=== PATIENT | female | born 1980 ===

== ENCOUNTER 2020-06-08 08:14 | Emergency (ER) | payer OTHER, MEDICAID, SELFPAY ==
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
[2020-06-08 08:30] VITALS: BP 126/77; PULSE 98; RESP 20; O2SAT 100; BMI 23.8
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
[2020-06-08 10:37] VITALS: BP 107/66; PULSE 74; RESP 18; O2SAT 100
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
[2020-06-08] MEDS: Acetaminophen 325 MG TABLET 975 MG PO (10:44)
== END 2020-06-08 10:51 | disposition home or self-care (01) ==
PROVIDERS: Emergency Provider Emergency Medicine; PCP Hospitalist
DX: S13.4XXA Sprain of ligaments of cervical spine, initial encounter (principal); V43.52XA Car driver injured in collision with other type car in traffic accident, initial encounter; Y93.89 Activity, other specified; Y92.414 Local residential or business street as the place of occurrence of the external cause; Y99.9 Unspecified external cause status
CPT/HCPCS: 70450; 72125; 99284

== ENCOUNTER 2020-06-11 08:29 | Outpatient (REF) | payer OTHER, MEDICAID, SELFPAY ==
--- NOTE | 2020-06-11 08:44 | CT_ITS ---
EXAMINATION: CT ABDOMEN AND PELVIS WITHOUT AND WITH CONTRAST CLINICAL INFORMATION: Microscopic hematuria COMPARISON: Portions of a previous study of 11/07/19 TECHNIQUE: Multidetector volumetric imaging was performed of the abdomen and pelvis before and after the IV administration of 85 mL of Omnipaque 350 intravenous contrast. Sagittal and coronal reformatted images were obtained on the technologist's workstation. This CT examination was performed using dose optimization techniques as appropriate, variously including the following: *Automated exposure control *Adjustment of mA and/or kV according to patient size (this includes techniques or standardized protocols for targeted exams where dose is matched to indication/reason for exam; i.e. extremities or head) *Use of iterative reconstruction technique DLP: 606 mGy-cm FINDINGS: LUNG BASES: No suspicious abnormality in the visualized lower chest LIVER, GALLBLADDER, AND BILIARY TREE: The liver contour is smooth. No suspicious focal lesion. There is no opaque gallstone. There is no biliary dilation. PANCREAS: Within normal limits SPLEEN: Normal ADRENAL GLANDS: No suspicious abnormality KIDNEYS AND URETERS: The left kidney measures at least 11.2 cm in greatest length. The right kidney measures at least 11.2 cm in greatest length. There is no opaque urinary calculus. There is mild fullness of the collecting system on each side. The renal contours are smooth. No suspicious renal mass. 0.4 cm round low attenuating lesion lower pole lateral left kidney may represent a cyst but is too small to characterize. The nephrograms are symmetric. There is bilateral excretion. There is no definite urothelial mass or thickening. BLADDER: There is no point bladder calculus. Bladder contour is smooth. There is no diverticulum or mass demonstrated. GASTROINTESTINAL TRACT: No colonic wall thickening. The appendix is normal. The stomach is not distended. There is no significant small bowel dilation. ABDOMINAL WALL: No significant hernia is appreciated. LYMPH NODES: There are no enlarged abdominal or pelvic lymph nodes. VASCULAR: There is no abdominal aortic aneurysm. There is enhancement in the central portion of single renal arteries on each side. The central portion of the renal veins enhance on each side. The portal vein enhances. No significant free intraperitoneal fluid. PELVIC VISCERA: There is a subtle contour abnormality and slight attenuation difference in the right side of the uterine body. Previous ultrasound suggested a uterine fibroid No suspicious adnexal mass or collection. OSSEOUS STRUCTURES: There is some degenerative change at L5/S1. CT/CT abdomen pelvis wo/w con IMPRESSION: There is no evidence of urinary calculus or obstruction. No suspicious mass. No etiology for hematuria demonstrated
[2020-06-11] MEDS: iohexoL 350 MG/ML 100 ML INFUS..BTL IV (09:32)
== END 2020-06-11 08:30 | disposition home or self-care (01) ==
LOC: HO.CT 08:29
PROVIDERS: PCP Nurse Practitioner Family; Visit Provider Obstetrics & Gynecology
DX: R31.29 Other microscopic hematuria (principal)
CPT/HCPCS: 74178

== ENCOUNTER 2020-06-14 13:44 | Outpatient (REF) | payer OTHER, MEDICAID, SELFPAY ==
[2020-06-14 14:02] LABS: COVID-19 Test Negative (Negative)
== END 2020-06-14 13:45 | disposition home or self-care (01) ==
LOC: HO.LAB 13:44
PROVIDERS: PCP Hospitalist; Visit Provider Internal Medicine
DX: Z20.828 Contact with and (suspected) exposure to other viral communicable diseases (principal)
CPT/HCPCS: 87635

== ENCOUNTER 2020-07-12 12:58 | Outpatient (REF) | payer OTHER, SELFPAY ==
[2020-07-12 14:27] LABS: COVID-19 Test Negative (Negative)
== END 2020-07-12 12:59 | disposition home or self-care (01) ==
LOC: HO.EMPCOV 12:58
PROVIDERS: Visit Provider Internal Medicine
DX: Z20.828 Contact with and (suspected) exposure to other viral communicable diseases (principal)
CPT/HCPCS: 87635; C9803

== ENCOUNTER 2020-07-19 08:36 | Outpatient (REF) | payer OTHER, SELFPAY ==
[2020-07-19 09:57] LABS: COVID-19 Test Negative (Negative)
== END 2020-07-19 08:37 | disposition home or self-care (01) ==
LOC: HO.EMPCOV 08:36
PROVIDERS: PCP Hospitalist; Visit Provider Internal Medicine
DX: Z20.828 Contact with and (suspected) exposure to other viral communicable diseases (principal)
CPT/HCPCS: 87635; C9803

== ENCOUNTER 2020-08-11 09:30 | Outpatient (REF) | payer OTHER, SELFPAY ==
[2020-08-11 09:48] LABS: COVID-19 Test Negative (Negative)
== END 2020-08-11 09:31 | disposition home or self-care (01) ==
LOC: HO.EMPCOV 09:30
PROVIDERS: PCP Hospitalist; Visit Provider Internal Medicine
DX: Z20.828 Contact with and (suspected) exposure to other viral communicable diseases (principal)
CPT/HCPCS: 87635; C9803

== ENCOUNTER 2020-09-03 09:57 | Outpatient (REF) | payer OTHER, MEDICAID, SELFPAY ==
--- NOTE | 2020-09-03 10:01 | XR_ITS ---
EXAMINATION: LEFT ANKLE AND LEFT KNEE. CLINICAL INFORMATION: Pain left ankle and left knee. COMPARISON: None TECHNIQUE: 3 views left ankle and 2 views left knee. FINDINGS: LEFT ANKLE: There is a subtle lucency traversing the distal fibula. There is no visible acute fracture, dislocation or subluxation. The ankle mortise and subtalar joints are normal. Left knee: No visible acute fracture, dislocation or subluxation seen. There are no loose bodies, bony erosive changes or joint effusion. XR/XR knee LT 2V IMPRESSION: No acute fracture or dislocation left knee. Subtle lucency traversing the distal fibula but no fracture line suspected at this time. There is no soft tissue swelling either.
--- NOTE | 2020-09-03 10:01 | XR_ITS ---
EXAMINATION: LEFT ANKLE AND LEFT KNEE. CLINICAL INFORMATION: Pain left ankle and left knee. COMPARISON: None TECHNIQUE: 3 views left ankle and 2 views left knee. FINDINGS: LEFT ANKLE: There is a subtle lucency traversing the distal fibula. There is no visible acute fracture, dislocation or subluxation. The ankle mortise and subtalar joints are normal. Left knee: No visible acute fracture, dislocation or subluxation seen. There are no loose bodies, bony erosive changes or joint effusion. XR/XR ankle LT min 3V IMPRESSION: No acute fracture or dislocation left knee. Subtle lucency traversing the distal fibula but no fracture line suspected at this time. There is no soft tissue swelling either.
== END 2020-09-03 09:58 | disposition home or self-care (01) ==
LOC: HO.XRAY 09:57
PROVIDERS: PCP Nurse Practitioner Family; Visit Provider Internal Medicine
DX: M25.562 Pain in left knee (principal); M25.572 Pain in left ankle and joints of left foot
CPT/HCPCS: 73560; 73610

== ENCOUNTER 2020-09-14 12:11 | Outpatient (REF) | payer OTHER, MEDICAID, SELFPAY ==
[2020-09-14 12:33] LABS: MANUAL DIFF FLAG NO
[2020-09-14 12:36] LABS: Basophils Absolute Auto 0.1 X10*3/uL (0.0-0.2); Basophils Percent Auto 0.4 % (0-2); Eosinophils Percent Auto 0.2 % (0-4); Hematocrit 38.5 % (37-47); Hemoglobin 12.7 g/dl (12.0-16.0); Imm Gran Abs Auto 0.05 X10*3/uL (0.00-0.03); Imm Gran Pct Auto 0.3 % (0.0-0.4); Lymphocytes Absolute Auto 2.2 X10*3/uL (1.2-4.9); Mean Corpuscular Hemoglobin 28.9 pg (27.0-33.0); Mean Corpuscular Volume 87.5 fL (80-98); Mean Platelet Volume 9.2 fL (9.4-12.3); Monocytes Absolute Auto 0.6 X10*3/uL (0.1-1.2); Monocytes Percent Auto 4.2 % (2-11); Neutrophils Absolute Auto 11.8 X10*3/uL (2.0-8.3); Neutrophils Percent Auto 79.9 % (45-73); Platelet Count 412 X10*3/uL (160-400); Red Cell Distribution Width 12.4 % (11.0-16.0); White Blood Count 14.7 X10*3/uL (4.8-10.8)
[2020-09-14 13:20] LABS: Anion Gap 11 (12-20); Blood Urea Nitrogen 13 mg/dL (9-16); Carbon Dioxide 27 mmol/L (22-29); Chloride 105 mmol/L (96-108); Estimated Glomerular Filt Rate > 60; Glucose Fasting 86 mg/dL (60-99); Potassium 4.3 mmol/l (3.3-5.1); Sodium 139 mmol/L (135-145)
[2020-09-14 13:35] LABS: Rheumatoid Factor < 15.0 IU/mL (<15.0)
== END 2020-09-14 12:12 | disposition home or self-care (01) ==
LOC: HO.LAB 12:11
PROVIDERS: Visit Provider Nurse Practitioner Family
DX: M25.572 Pain in left ankle and joints of left foot (principal); M79.662 Pain in left lower leg
CPT/HCPCS: 36415; 80048; 85025; 86431

== ENCOUNTER 2020-09-29 10:06 | Outpatient (REF) | payer OTHER, MEDICAID, SELFPAY ==
[2020-09-29 10:20] LABS: COVID-19 Test Positive (Negative); IDNOW Serial# 55D5AD1C
== END 2020-09-29 10:07 | disposition home or self-care (01) ==
LOC: HO.EMPCOV 10:06
PROVIDERS: Visit Provider Internal Medicine
DX: Z20.822 Contact with and (suspected) exposure to COVID-19 (principal)
CPT/HCPCS: 36415; 87635; C9803

== ENCOUNTER 2020-11-10 08:10 | Outpatient (REF) | payer OTHER, MEDICAID, SELFPAY ==
[2020-11-10 09:03] LABS: MANUAL DIFF FLAG NO
[2020-11-10 09:07] LABS: Basophils Percent Auto 0.6 % (0-2); Eosinophils Absolute Auto 0.1 X10*3/uL (0.0-0.4); Eosinophils Percent Auto 0.7 % (0-4); Hematocrit 36.6 % (37-47); Hemoglobin 12.2 g/dl (12.0-16.0); Imm Gran Abs Auto 0.01 X10*3/uL (0.00-0.03); Imm Gran Pct Auto 0.1 % (0.0-0.4); Lymphocytes Absolute Auto 2.1 X10*3/uL (1.2-4.9); Lymphocytes Percent Auto 30.4 % (20-40); Mean Corpuscular HGB Conc 33.3 g/dl (31.0-35.0); Mean Corpuscular Volume 86.9 fL (80-98); Mean Platelet Volume 9.5 fL (9.4-12.3); Monocytes Absolute Auto 0.4 X10*3/uL (0.1-1.2); Monocytes Percent Auto 5.6 % (2-11); Neutrophils Absolute Auto 4.2 X10*3/uL (2.0-8.3); Neutrophils Percent Auto 62.6 % (45-73); Platelet Count 387 X10*3/uL (160-400); Red Blood Count 4.21 X10*6/uL (4.20-5.50); Red Cell Distribution Width 12.7 % (11.0-16.0); White Blood Count 6.7 X10*3/uL (4.8-10.8)
[2020-11-10 09:42] LABS: Alanine Aminotransferase 12 U/L (0-31); Alkaline Phosphatase 42 U/L (39-117); Anion Gap 14 (12-20); Aspartate Amino Transferase 22 U/L (5-31); Bilirubin Total 0.9 mg/dL (0.0-1.0); Blood Urea Nitrogen 12 mg/dL (9-16); Calcium 8.7 mg/dL (8.4-10.2); Carbon Dioxide 24 mmol/L (22-29); Chloride 106 mmol/L (96-108); Cholesterol 175 mg/dL; Estimated Glomerular Filt Rate > 60; Glucose Fasting 76 mg/dL (60-99); HDL Cholesterol 61 mg/dL; LDL Cholesterol Calculated 98 mg/dl; Sodium 140 mmol/L (135-145); Total Protein 6.8 g/dL (6.5-8.0); Triglycerides 80 mg/dL
[2020-11-10 10:02] LABS: TSH reflex Free T4 1.11 uIU/mL (0.32-4.0)
[2020-11-10 10:40] LABS: Folate > 20.0 ng/mL (> or = 4.0); Vitamin B12 676 pg/mL (200-900)
[2020-11-15 14:56] LABS: Vitamin D 25-OH, D2 <4 ng/mL; Vitamin D 25-OH, D3 35 ng/mL; Vitamin D 25-OH, Total 35 ng/mL (30-100)
== END 2020-11-10 08:11 | disposition home or self-care (01) ==
LOC: HO.LAB 08:10
PROVIDERS: PCP Nurse Practitioner Family; Visit Provider Nurse Practitioner Family
DX: R53.83 Other fatigue (principal)
CPT/HCPCS: 36415; 80053; 80061; 82306; 82607; 82746; 84443; 85025

== ENCOUNTER 2020-12-09 14:53 | Outpatient (REF) | payer OTHER, MEDICAID, SELFPAY | END 2020-12-09 14:54 | disposition home or self-care (01) | LOC: HO.LAB 14:53 | PROVIDERS: Visit Provider Obstetrics & Gynecology | DX: B97.7 Papillomavirus as the cause of diseases classified elsewhere (principal) | CPT/HCPCS: 57454; 81025; 88305 ==

== ENCOUNTER → 2020-12-13 14:21 | Outpatient (BNVA) | payer OTHER, MEDICAID, SELFPAY | PROVIDERS: Visit Provider Obstetrics & Gynecology ==

== ENCOUNTER 2021-03-08 13:56 | Outpatient (REF) | payer OTHER, MEDICAID, SELFPAY ==
[2021-03-09 02:39] LABS: CT PCR NOT DETECTED (Not Detect.); NG PCR NOT DETECTED (Not Detect.)
[2021-03-09 08:39] LABS: BV Int Neg Control Negative (Negative); BV Int Pos Control Positive (Positive)
== END 2021-03-08 13:57 | disposition home or self-care (01) ==
LOC: HO.LAB 13:56
PROVIDERS: PCP Internal Medicine; Visit Provider Obstetrics & Gynecology
DX: Z11.3 Encounter for screening for infections with a predominantly sexual mode of transmission (principal); N89.8 Other specified noninflammatory disorders of vagina; L29.8 Other pruritus
CPT/HCPCS: 87480; 87491; 87510; 87591; 87660

== ENCOUNTER 2021-05-07 09:02 | Outpatient (REF) | payer OTHER, MEDICAID, SELFPAY ==
--- NOTE | ~2021-05-07 | MM_ITS ---
EXAMINATION: MM SCREENING DIGITAL BREAST TOMOSYNTHESIS, BILATERAL CLINICAL INFORMATION: Screening. Asymptomatic. The lifetime risk of breast cancer based on the Tyrer-Cuzick Model is 8.3%. COMPARISON: Mammography: February 13, 2020 TECHNIQUE: Digital breast tomosynthesis is performed in both the craniocaudal and mediolateral oblique views along with computer-aided detection (CAD). Synthesized 2D images are generated from the tomosynthesis. FINDINGS: There are scattered areas of fibroglandular density (ACR BI-RADS breast composition Category b). There are no significant masses, abnormal calcifications, or other abnormalities. MM/MM tomosynthesis screening BI IMPRESSION: There are no significant changes from prior study. ASSESSMENT: BI-RADS 1: Negative RECOMMENDATION: Routine annual mammography screening. This patient's information was entered into a reminder system with a target due date for their next mammogram.
== END 2021-05-07 09:03 | disposition home or self-care (01) ==
LOC: HO.MAMMO 09:02
PROVIDERS: Visit Provider Obstetrics & Gynecology
DX: Z12.31 Encounter for screening mammogram for malignant neoplasm of breast (principal)
CPT/HCPCS: 77063; 77067

== ENCOUNTER 2021-08-22 11:08 | Outpatient (REF) | payer OTHER, MEDICAID, SELFPAY ==
[2021-08-23 05:14] LABS: CT PCR NOT DETECTED (Not Detect.); NG PCR NOT DETECTED (Not Detect.)
== END 2021-08-22 11:09 | disposition home or self-care (01) ==
LOC: HO.LAB 11:08
PROVIDERS: Visit Provider Obstetrics & Gynecology
DX: N93.9 Abnormal uterine and vaginal bleeding, unspecified (principal)
CPT/HCPCS: 87491; 87591

== ENCOUNTER → 2021-09-23 08:59 | Outpatient (BNVA) | payer OTHER, MEDICAID, SELFPAY | PROVIDERS: Visit Provider Obstetrics & Gynecology ==

== ENCOUNTER 2021-10-05 12:39 | Outpatient (REF) | payer OTHER, MEDICAID, SELFPAY ==
[2021-10-05 17:25] LABS: CT PCR NOT DETECTED (Not Detect.); NG PCR NOT DETECTED (Not Detect.)
[2021-10-06 08:49] LABS: BV Int Neg Control Negative (Negative); BV Int Pos Control Positive (Positive)
== END 2021-10-05 12:40 | disposition home or self-care (01) ==
LOC: HO.LAB 12:39
PROVIDERS: Visit Provider Obstetrics & Gynecology
DX: Z01.411 Encounter for gynecological examination (general) (routine) with abnormal findings (principal); B37.3 Candidiasis of vulva and vagina; Z20.2 Contact with and (suspected) exposure to infections with a predominantly sexual mode of transmission
CPT/HCPCS: 87480; 87491; 87510; 87591; 87660

== ENCOUNTER 2021-11-11 08:07 | Outpatient (REF) | payer OTHER, MEDICAID, SELFPAY ==
[2021-11-11 08:24] LABS: MANUAL DIFF FLAG NO
[2021-11-11 09:01] LABS: Basophils Percent Auto 0.5 % (0-2); Eosinophils Percent Auto 0.6 % (0-4); Hematocrit 36.6 % (37.0-47.0); Hemoglobin 12.5 g/dl (12.0-16.0); Imm Gran Abs Auto 0.02 X10*3/uL (0.00-0.03); Imm Gran Pct Auto 0.3 % (0.0-0.4); Lymphocytes Absolute Auto 1.8 X10*3/uL (1.2-4.9); Lymphocytes Percent Auto 28.4 % (20-40); Mean Corpuscular HGB Conc 34.2 g/dl (31.0-35.0); Mean Platelet Volume 9.2 fL (9.4-12.3); Monocytes Absolute Auto 0.3 X10*3/uL (0.1-1.2); Monocytes Percent Auto 5.2 % (2-11); Platelet Count 371 X10*3/uL (160-400); Red Blood Count 4.16 X10*6/uL (4.20-5.50); Red Cell Distribution Width 12.7 % (11.0-16.0); White Blood Count 6.2 X10*3/uL (4.8-10.8)
[2021-11-11 09:29] LABS: Alanine Aminotransferase 13 U/L (0-31); Albumin Level 3.9 g/dL (3.5-5.0); Alkaline Phosphatase 42 U/L (39-117); Anion Gap 12 (12-20); Aspartate Amino Transferase 15 U/L (5-31); Bilirubin Total 0.6 mg/dL (0.0-1.0); Blood Urea Nitrogen 10 mg/dL (9-16); Calcium 8.9 mg/dL (8.4-10.2); Carbon Dioxide 24 mmol/L (22-29); Chloride 107 mmol/L (96-108); Cholesterol 169 mg/dL; Estimated Glomerular Filt Rate > 60; Glucose Fasting 84 mg/dL (60-99); HDL Cholesterol 61 mg/dL; LDL Cholesterol Calculated 89 mg/dl; Potassium 4.3 mmol/L (3.3-5.1); Sodium 139 mmol/L (135-145); Total Protein 6.6 g/dL (6.5-8.0); Triglycerides 95 mg/dL
[2021-11-11 09:51] LABS: TSH reflex Free T4 1.07 uIU/mL (0.32-4.0)
== END 2021-11-11 08:08 | disposition home or self-care (01) ==
LOC: HO.LAB 08:07
PROVIDERS: PCP Nurse Practitioner Family; Visit Provider Nurse Practitioner Family
DX: Z00.00 Encounter for general adult medical examination without abnormal findings (principal); G47.9 Sleep disorder, unspecified
CPT/HCPCS: 36415; 80053; 80061; 84443; 85025

== ENCOUNTER 2021-11-25 08:38 | Outpatient (REF) | payer OTHER, MEDICAID, SELFPAY ==
--- NOTE | 2021-12-07 13:31 | MHC.AU.ANO ---
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 This symptom started approximately one month ago, is constant but fluctuates in intensity. She does not experience any balance problems or congestion. Janeth does report in June 2021 she developed severe anxiety and difficulty sleeping when her foster child of approximately 4 years left her custody. She is involved with a support group and does not want to take any medications. Does patient feel they have a hearing loss?: No Has hearing been tested previously?: No Hearing Handicap Inventory: HHIE SCORE: 0 Based on HHIE score, patient has: No perceived hearing handicap Ear History: Recent Ear Pain: Left Ear Bothersome Tinnitus/Ringing/Noises in Ears: Left Ear Ear used on the phone: Left Ear History of occupational noise exposure?: No History: No Medical History: Medical History: Headache Medication List: Control and Vitamins Otoscopy: Right Ear: Unremarkable Left Ear: Unremarkable Tympanometry: Tympanometry performed due to: To assess integrity of the middle ear system Right Ear: Normal Middle Ear System (Type A) Left Ear: Normal Middle Ear System (Type A) Otoacoustic Emissions Frequency Range Used: 1.6-8 kHz Right Ear Results: Present 1.6-3, 4.5, 6, 7 kHz Reduced 5 & 8 kHz Absent 3.6 & 4 kHz Analysis: Present emissions suggest normal cochlear function Rules out peripheral hearing loss greater than a mild degree Reduced/Absent emissions suggest cochlear dysfunction Left Ear Results: Present 1.6-3, 4.5-6 kHz Reduced 3.6, 4, 7 kHz Absent 8 kHz Analysis: Present emissions suggest normal cochlear function Rules out peripheral hearing loss greater than a mild degree Reduced/Absent emissions suggest cochlear dysfunction Hearing Evaluation: Transducer(s) Used: Insert Earphones Bone Conduction Method: Conventional Audiometry Stimuli Used: Pure Tones Right Ear: Description of Hearing: Borderline normal/mild sensorineural hearing loss 250-1000 Hz, rising to normal hearing levels at 4193-3249 Hz Left Ear: Description of Hearing: Borderline normal/mild sensorineural hearing loss 1000 and 2000 Hz with all remaining frequencies being within the normal range. Speech Recognition Threshold (SRT): Method Used: Monitored Live Voice Stimuli Used: Spondee Words Right Ear: 15 dB HL Left Ear: 15 dB HL Word Discrimination: Method: Recorded Lists Word Lists Used: NU-6 Right Ear: 92% at 55 dB HL Left Ear: 92% at 55 dB HL Interpretation of Results: Today's results indicate overall symmetrical hearing levels of borderline normal/mild loss. There are many factors which relate to tinnitus, including reduced cochlear, stress/anxiety, fatigue, all of which Janeth is experiencing. Discussed the various theories of tinnitus and management strategies. Recommendations: - Audiological re-evaluation in one year, or sooner if the tinnitus increases or change in hearing is suspected. Will send a reminder card. - If symptom(s) continue, medical consultation with an Director Process is advised. Diagnosis: Primary Diagnosis: H93.12 Tinnitus, Left Ear Services Performed: Comprehensive Audiological Evaluation (CPT 33866) Diagnostic Otoacoustic Emissions (CPT 69555, 26+TC) Tympanometry and Acoustic Reflexes (CPT 34772) Signature: Provider: Britt Ivey, CCC-A
== END 2021-11-25 08:39 | disposition home or self-care (01) ==
LOC: HO.SH 08:38
PROVIDERS: Visit Provider Nurse Practitioner Family
DX: Z01.118 Encounter for examination of ears and hearing with other abnormal findings (principal); H93.12 Tinnitus, left ear
CPT/HCPCS: 92550; 92557; 92588

== ENCOUNTER 2022-03-30 08:14 | Outpatient (REF) | payer OTHER, MEDICAID, SELFPAY ==
[2022-03-30 15:14] LABS: CT PCR NOT DETECTED (Not Detect.); NG PCR NOT DETECTED (Not Detect.)
[2022-04-10 09:52] LABS: HPV 16 RNA NOT DETECTED (NOT DETECTED); HPV mRNA E6/E7 rflx Detected (Not Detected)
== END 2022-03-30 08:15 | disposition home or self-care (01) ==
LOC: HO.LAB 08:14
PROVIDERS: PCP Nurse Practitioner Family; Visit Provider Obstetrics & Gynecology
DX: Z01.419 Encounter for gynecological examination (general) (routine) without abnormal findings (principal); N93.0 Postcoital and contact bleeding; N93.9 Abnormal uterine and vaginal bleeding, unspecified; N87.0 Mild cervical dysplasia; R10.2 Pelvic and perineal pain; Z11.51 Encounter for screening for human papillomavirus (HPV)
CPT/HCPCS: 58100; 81025; 87491; 87591; 87624; 87625; 88142; 88305

== ENCOUNTER 2022-04-04 12:47 | Outpatient (REF) | payer OTHER, MEDICAID, SELFPAY ==
[2022-04-04 13:54] LABS: Hemoglobin 12.4 g/dl (12.0-16.0); Mean Corpuscular HGB Conc 34.4 g/dl (31.0-35.0); Mean Platelet Volume 9.4 fL (9.4-12.3); Platelet Count 403 X10*3/uL (160-400); Red Blood Count 4.14 X10*6/uL (4.20-5.50); Red Cell Distribution Width 12.9 % (11.0-16.0); White Blood Count 11.3 X10*3/uL (4.8-10.8)
[2022-04-04 14:45] LABS: HCG Quantitative < 2 mIU/mL; TSH reflex Free T4 1.68 uIU/mL (0.32-4.0)
== END 2022-04-04 12:48 | disposition home or self-care (01) ==
LOC: HO.LAB 12:47
PROVIDERS: Visit Provider Obstetrics & Gynecology
DX: N93.9 Abnormal uterine and vaginal bleeding, unspecified (principal)
CPT/HCPCS: 36415; 84443; 84702; 85027

== ENCOUNTER 2022-04-13 12:31 | Outpatient (REF) | payer OTHER, MEDICAID, SELFPAY ==
--- NOTE | ~2022-04-13 | US_ITS ---
EXAMINATION: US PELVIS COMPLETE CLINICAL INFORMATION: Abnormal uterine bleeding COMPARISON: Pelvic ultrasound 04/21/2020, CT abdomen pelvis 06/11/2020 TECHNIQUE: Transabdominal and transvaginal imaging was performed. FINDINGS: The uterus is of normal size and echogenicity measuring 8.4 x 5.2 x 6.2 cm and is retroverted and retroflexed in position. There is a dominant 4.9 x 5.6 x 5.0 cm myoma in the uterine fundus, increased from prior previously 2.5 x 2.2 x 2.2 cm with shadowing from myoma obscuring evaluation of the endometrium. Both ovaries are of normal size. The right measures 2.1 x 1.2 x 1.1 cm for a volume of 1.5 mL. There are scattered punctate echogenic foci associated with the right ovary with associated shadowing which may reflect calcifications of adjacent adnexal vessels. The left measures 2.7 x 1.8 x 1.1 cm for a volume of 2.8 mL. There is a 5 mm area of relative hyperechogenicity within the left ovary, favored not to be significantly distinct from the background echotexture. There is no pelvic free fluid. US/US pelvic and transvaginal IMPRESSION: Increasing size of a dominant 5.6 cm fundal myoma with shadowing from the myoma obscuring evaluation of the endometrium. There is a 5 mm area of relative hyperechogenicity within the left ovary, favored not to be significantly distinct from the background echotexture however a small dermoid would be difficult to entirely exclude. Recommend 6 month follow-up pelvic ultrasound. There are scattered punctate echogenic foci associated with the right ovary with associated shadowing which may reflect vascular calcifications of adjacent adnexal vessels.
== END 2022-04-13 12:32 | disposition home or self-care (01) ==
LOC: HO.US 12:31
PROVIDERS: Visit Provider Obstetrics & Gynecology
DX: N93.9 Abnormal uterine and vaginal bleeding, unspecified (principal)
CPT/HCPCS: 76830; 76856

== ENCOUNTER 2022-06-23 07:52 | Outpatient (REF) | payer OTHER, MEDICAID, SELFPAY ==
--- NOTE | ~2022-06-23 | MM_ITS ---
EXAMINATION: MM SCREENING DIGITAL BREAST TOMOSYNTHESIS, BILATERAL CLINICAL INFORMATION: Screening. Asymptomatic. COMPARISON: Mammography: 05/07/2021, 02/13/2020 TECHNIQUE: Digital mammography is performed in craniocaudal and mediolateral oblique views along with computer-aided detection (CAD). Digital breast tomosynthesis is performed in implant-displaced craniocaudal and implant-displaced mediolateral oblique views along with computer-aided detection (CAD). Synthesized 2D images are generated from the tomosynthesis. FINDINGS: There are scattered areas of fibroglandular density (ACR BI-RADS breast composition Category b). Breast tissue composition borders on predominantly fatty. Background stromal and fibroglandular densities are stable. There is no developing density or interval architectural abnormality or abnormal calcifications. Current exam has bilateral implants with smooth contours. The axilla are unremarkable. No significant changes. MM/MM tomosynthesis screen imp BI IMPRESSION: -No mammographic evidence of malignancy. -Bilateral implants present. ASSESSMENT: BI-RADS 1: Negative RECOMMENDATION: Routine annual mammography screening. This patient's information was entered into a reminder system with a target due date for their next mammogram.
== END 2022-06-23 07:53 | disposition home or self-care (01) ==
LOC: HO.MAMMO 07:52
PROVIDERS: Visit Provider Obstetrics & Gynecology
DX: Z12.31 Encounter for screening mammogram for malignant neoplasm of breast (principal)
CPT/HCPCS: 77063; 77067

== ENCOUNTER 2022-07-24 18:08 | Outpatient (REF) | payer OTHER, MEDICAID, SELFPAY ==
[2022-07-24 19:00] LABS: Influenza A PCR NEGATIVE (Negative); Influenza B PCR NEGATIVE (Negative); Resp Syncy Virus RNA Qual PCR NEGATIVE (Negative); SARS COV2 PCR INHOUSE NEGATIVE (Negative)
== END 2022-07-24 18:09 | disposition home or self-care (01) ==
LOC: HO.LNP 18:08
PROVIDERS: Visit Provider Physician Assistant
DX: J02.8 Acute pharyngitis due to other specified organisms (principal); Z20.822 Contact with and (suspected) exposure to COVID-19
CPT/HCPCS: 0241U

== ENCOUNTER 2022-10-26 15:38 | Outpatient (REF) | payer OTHER, MEDICAID, SELFPAY | END 2022-10-26 15:39 | disposition home or self-care (01) | LOC: HO.LNP 15:38 | PROVIDERS: Visit Provider Obstetrics & Gynecology | DX: R87.810 Cervical high risk human papillomavirus (HPV) DNA test positive (principal); N87.0 Mild cervical dysplasia; D21.9 Benign neoplasm of connective and other soft tissue, unspecified; N83.299 Other ovarian cyst, unspecified side | CPT/HCPCS: 57454; 88305; 88342; 88360 ==

== ENCOUNTER 2022-10-31 12:46 | Outpatient (REF) | payer OTHER, MEDICAID, SELFPAY ==
--- NOTE | ~2022-10-31 | US_ITS ---
EXAMINATION: US PELVIS CLINICAL INFORMATION: Ovarian cyst COMPARISON: 04/13/2022 TECHNIQUE: Ultrasound of the pelvis is performed using both transabdominal and transvaginal transducers along with Doppler. Transvaginal imaging is performed due to inadequate visualization transabdominally. FINDINGS: Uterus: The uterus is anteverted and measures 9.5 x 6.2 x 6.1 cm. The double wall endometrial thickness is 0.6 mm. The uterus is smooth in contour and has normal myometrial echogenicity. There is a intramural fibroid measuring 5.6 x 5.2 x 5.8 cm. Adnexa: Both ovaries are visualized. There is normal color flow to the adnexa. There is no ovarian torsion. There is no pelvic ascites or fluid collection. Right ovary measures 1.9 x 1.5 x 1.2 cm. Possible intraovarian calcifications are again noted. Left ovary measures 1.9 x 1.7 x 1.4 cm. There is a slightly hyperechoic focus within the left ovary measuring 0.4 x 0.4 x 0.5 cm containing possible calcifications. This is unchanged from prior study US/US pelvic and transvaginal IMPRESSION: Left ovarian hyperechoic focus measuring 0.5 cm containing possible calcifications is unchanged from prior study. Recommend continued short interval follow-up six-month ultrasound.
== END 2022-10-31 12:47 | disposition home or self-care (01) ==
LOC: HO.US 12:46
PROVIDERS: PCP Obstetrics & Gynecology; Visit Provider Obstetrics & Gynecology
DX: N83.299 Other ovarian cyst, unspecified side (principal)
CPT/HCPCS: 76830; 76856

== ENCOUNTER → 2022-11-06 08:55 | Outpatient (BNVA) | payer OTHER, MEDICAID, SELFPAY | PROVIDERS: Visit Provider Obstetrics & Gynecology | DX: Z13.89 Encounter for screening for other disorder (principal) ==

== ENCOUNTER 2022-11-10 05:49 | Day surgery (SDC) | payer OTHER, MEDICAID, SELFPAY ==
[2022-11-10 06:02] VITALS: BMI 21.9
[2022-11-10 06:19] VITALS: BP 107/63; PULSE 74; RESP 15; TEMP 36.4; O2SAT 99
[2022-11-10] MEDS: Lactated Ringers 1,000 ML 50 ML IVCONT (06:24)
[2022-11-10 06:34] LABS: UPreg QC Valid YES; Urine Pregnancy NEGATIVE (NEGATIVE)
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
--- NOTE | 2022-11-10 07:43 | MHC.SHP ---
Pre-Procedural Eval Section A Date of Service: 11/10/22 The patient is an INPATIENT: No Changes since office visit: No Cold of Flu in the past 2 weeks, No New Medical Problems, No Changes in Medication and No Patient answered all questions The History & Physical has been completed within 30 days and I have reviewed it.: Yes Section B Chief Complaint: Carcinoma in situ of cervix, unspecified Allergies: Allergies Allergy/AdvReac Type Severity Reaction Status Date / Time No Known Allergies Allergy Verified 11/10/22 06:07 Plan Diagnosis/Plan: Unchanged I have reviewed the history and physical and performed a pertinent physical examination on my patient. No changes have occurred unless specified. Time Spent With Patient Time: Total time managing care of this patient today ____ minutes.
--- NOTE | 2022-11-10 07:59 | PM.OP ---
Brief Operative Note Date of Service: 11/10/22 Pre-op diagnosis: CAYDEN 2-3 with? positive ECC Post-op diagnosis: same Procedure: LEEP CONE with post CONE ECC Surgeon: Louis Blake MD Anesthesia: GLMA and other (Paracervical block) Was an Buckle And Button Maker used for this Procedure?: No Estimated blood loss (mL): 0 Pathology: other (Cervical cone, top-hat, Post cone ECC) Condition: stable Disposition: other (Home)
--- NOTE | 2022-11-10 08:00 | W.PM.OPN ---
Operative Note Operative Note Date of Service: 11/10/22 Narrative: Pre op diagnosis: CAYDEN 2-3 with ?positive ECC Operation: Colposcopy, Loop electrical excision procedure cone, top hat endocervical excision, post cone ECC Postop diagnosis: the same Quantitative blood loss: 50 cc Surgeon: Louis Blake MD, FACOG Director Of Pediatric Rehabilitation: None Pathology: Cervical cone, top-hat endo cervical excision, endo cervical curettage Complications: none Anesthesia: GLMA and Para cervical block Procedure: The patient was put in a dorsal lithotomy position, scrubbed and draped in the usual sterile fashion. A speculum was inserted inside the patient's vagina. The cervix is assessed using the colposcope with acetic acid , the lesions were seen, and at least 1 cm of the squamocolumnar junction was observed. 20 x 5 mm size loop was selected based upon the diameter of the lesion. Lugol solution was used to outline the lesions and area of the transformation zone order to be removed 10 cc of xylocaine with epinephrine were injected submucosally into the surface of the cervix (ectocervix) at the 3, 6, 9, and 12 o'clock positions. The electrosurgical generator is set at 40 whittaker on blend 1. The loop is carefully passed simultaneously around and under the transformation zone, in order to ensure excising it making sure the lesion is at least 5 mm far from the specimen margins . The loop was allowed to glide through the cervix from one side to the other, allowing the cutting current to divide the tissue. Since ECC pathology was ? positive for high-grade dysplasia, endo cervical disease could be beyond the reach of the loop, additional tissue was excised from this area with a smaller-diameter loop , endo cervical top-hat excision was performed An endo cervical curettage is performed following completion of excision, and hemostasis is obtained with a Ball electrode or regular tip cautery. At the end, Monsel's solution was applied to the cone bed. The patient tolerated the procedure well and, all instruments were taken out of the patient vaginal cavity, and the patient was transferred to the PACU in stable condition.
[2022-11-10 08:04] VITALS: BP 83/42; PULSE 90; RESP 14; TEMP 36.6; O2SAT 99
[2022-11-10 08:09] VITALS: BP 85/41; PULSE 88; RESP 14; O2SAT 99
[2022-11-10 08:14] VITALS: BP 99/56; PULSE 80; RESP 14; O2SAT 99
[2022-11-10 08:19] VITALS: BP 105/54; PULSE 79; RESP 16; O2SAT 100
[2022-11-10 08:34] VITALS: BP 104/62; PULSE 81; RESP 16; TEMP 37.2; O2SAT 100
== END 2022-11-10 08:59 | disposition home or self-care (01) ==
PROVIDERS: Anesthesiology; PCP Physician Assistant; Visit Provider Obstetrics & Gynecology
PROC: 0UBC7ZZ Excision of Cervix, Via Natural or Artificial Opening (ICD-10-PCS; CPT 57522; principal; 2022-11-10 07:30)
DX: D06.9 Carcinoma in situ of cervix, unspecified (principal); J30.9 Allergic rhinitis, unspecified; R53.83 Other fatigue; D57.3 Sickle-cell trait; Z79.899 Other long term (current) drug therapy
CPT/HCPCS: 57461; 81025; 88305; 88307; J0131; J1100; J2250; J2405; J2550; J3010

== ENCOUNTER → 2022-11-28 14:39 | Outpatient (BNVA) | payer OTHER, MEDICAID, SELFPAY | PROVIDERS: PCP Physician Assistant; Visit Provider Obstetrics & Gynecology | DX: Z13.89 Encounter for screening for other disorder (principal) ==

== ENCOUNTER 2022-12-11 08:09 | Outpatient (REF) | payer OTHER, MEDICAID, SELFPAY | END 2022-12-11 08:10 | disposition home or self-care (01) | LOC: HO.LNP 08:09 | PROVIDERS: PCP Physician Assistant; Visit Provider Obstetrics & Gynecology | DX: A60.04 Herpesviral vulvovaginitis (principal) | CPT/HCPCS: 87255 ==

== ENCOUNTER 2023-01-22 14:56 | Outpatient (REF) | payer OTHER, MEDICAID, SELFPAY ==
[2023-01-23 08:55] LABS: BV Int Neg Control Negative (Negative); BV Int Pos Control Positive (Positive)
== END 2023-01-22 14:57 | disposition home or self-care (01) ==
LOC: HO.LNP 14:56
PROVIDERS: PCP Physician Assistant; Visit Provider Obstetrics & Gynecology
DX: A60.04 Herpesviral vulvovaginitis (principal); N90.89 Other specified noninflammatory disorders of vulva and perineum
CPT/HCPCS: 87480; 87510; 87660

== ENCOUNTER 2023-02-13 08:23 | Outpatient (REF) | payer MEDICAID, SELFPAY | END 2023-02-13 08:24 | disposition home or self-care (01) | LOC: HO.LNP 08:23 | PROVIDERS: PCP Physician Assistant; Visit Provider Obstetrics & Gynecology | DX: N93.9 Abnormal uterine and vaginal bleeding, unspecified (principal); Z32.02 Encounter for pregnancy test, result negative | CPT/HCPCS: 81025; 99212 ==

== ENCOUNTER 2023-02-13 12:30 | Outpatient (REF) | payer MEDICAID, SELFPAY ==
--- NOTE | ~2023-02-13 | US_ITS ---
EXAMINATION: US PELVIS COMPLETE CLINICAL INFORMATION: Abnormal bleeding COMPARISON: Pelvic ultrasound 10/31/2022 TECHNIQUE: Transabdominal and transvaginal imaging was performed. FINDINGS: The uterus is enlarged measuring 10.0 x 8.2 x 6.5 cm. A regular homogeneous endometrium is identified measuring 0.9 cm. A 7.0 x 5.8 x 6.2 cm transmural myoma in the fundus of the uterus with a less than 50% submucosal component. This previously measured 5.6 x 5.3 x 5.8 cm and is increased in size. Right ovary was not identified sonographically. The left measures 2.4 x 1.1 x 2.1 cm for a volume of 2.7 mL and is unremarkable in appearance although only visualized transabdominally limiting evaluation and the previously seen echogenic lesion was not identified. There is no pelvic free fluid. US/US pelvic and transvaginal IMPRESSION: 1. A 7.0 cm transmural myoma in the fundus of the uterus with a less than 50% submucosal component, increased in size from prior. 2. Right ovary was not identified sonographically. The left ovary is unremarkable in appearance although only visualized transabdominally limiting evaluation and the previously seen echogenic lesion was not identified.
[2023-02-13 13:05] LABS: Hematocrit 35.9 % (37.0-47.0); Hemoglobin 12.2 g/dl (12.0-16.0); Mean Corpuscular Hemoglobin 29.8 pg (27.0-33.0); Mean Corpuscular Volume 87.8 fL (80.0-98.0); Mean Platelet Volume 9.2 fL (9.4-12.3); Platelet Count 387 X10*3/uL (160-400); Red Blood Count 4.09 X10*6/uL (4.20-5.50); Red Cell Distribution Width 13.1 % (11.0-16.0)
[2023-02-13 13:50] LABS: HCG Quantitative < 2 mIU/mL
[2023-02-13 16:23] LABS: CT PCR NOT DETECTED (Not Detect.); NG PCR NOT DETECTED (Not Detect.)
[2023-02-15 08:13] LABS: Prolactin 13.3 ng/mL
== END 2023-02-13 12:31 | disposition home or self-care (01) ==
LOC: HO.US 12:30
PROVIDERS: PCP Physician Assistant; Visit Provider Obstetrics & Gynecology
DX: N93.9 Abnormal uterine and vaginal bleeding, unspecified (principal)
CPT/HCPCS: 0353U; 76830; 76856; 84146; 84443; 84702; 85027

== ENCOUNTER 2023-02-26 | Outpatient (REF) | payer MEDICAID, SELFPAY | END 2023-02-26 00:01 | disposition home or self-care (01) | LOC: HO.US | PROVIDERS: PCP Physician Assistant; Visit Provider Obstetrics & Gynecology | DX: D06.9 Carcinoma in situ of cervix, unspecified (principal); N93.9 Abnormal uterine and vaginal bleeding, unspecified; Z32.2 Encounter for childbirth instruction | CPT/HCPCS: 58100; 81025 ==

== ENCOUNTER 2023-02-26 15:39 | Outpatient (AMB) | payer MEDICAID, SELFPAY ==
[2023-02-26 15:45] VITALS: BP 108/64; BMI 22.2
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
== END 2023-02-26 16:10 | disposition home or self-care (01) ==
LOC: HO.HWS 15:39
PROVIDERS: PCP Physician Assistant; Visit Provider Obstetrics & Gynecology
DX: D06.9 Carcinoma in situ of cervix, unspecified (principal); N93.9 Abnormal uterine and vaginal bleeding, unspecified; Z32.02 Encounter for pregnancy test, result negative
CPT/HCPCS: 58100

== ENCOUNTER 2023-02-26 16:03 | Outpatient (REF) | payer MEDICAID, SELFPAY ==
[2023-03-03 03:27] LABS: HPV mRNA E6/E7 rflx Not Detected (Not Detected)
== END 2023-02-26 16:04 | disposition home or self-care (01) ==
LOC: HO.LNP 16:03
PROVIDERS: Visit Provider Obstetrics & Gynecology
DX: Z12.4 Encounter for screening for malignant neoplasm of cervix (principal); Z11.51 Encounter for screening for human papillomavirus (HPV); N93.9 Abnormal uterine and vaginal bleeding, unspecified
CPT/HCPCS: 58100; 81025; 87624; 88142; 88305

== ENCOUNTER 2023-03-05 15:09 | Outpatient (AMB) | payer OTHER, SELFPAY ==
[2023-03-05 15:10] VITALS: BP 120/74; BMI 22.2
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
== END 2023-03-05 15:26 | disposition home or self-care (01) ==
LOC: HO.HWS 15:09
PROVIDERS: PCP Physician Assistant; Visit Provider Obstetrics & Gynecology
DX: D25.9 Leiomyoma of uterus, unspecified (principal)
CPT/HCPCS: 99213

== ENCOUNTER → 2023-03-05 15:09 | Outpatient (BNVA) | payer OTHER, SELFPAY | PROVIDERS: PCP Physician Assistant; Visit Provider Obstetrics & Gynecology | DX: D25.9 Leiomyoma of uterus, unspecified (principal) | CPT/HCPCS: 99212 ==

== ENCOUNTER 2023-03-20 08:18 | Outpatient (AMB) | payer OTHER, SELFPAY ==
[2023-03-20 08:18] VITALS: BP 110/74; BMI 22.2
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
== END 2023-03-20 08:31 | disposition home or self-care (01) ==
LOC: HO.HWS 08:18
PROVIDERS: PCP Physician Assistant; Visit Provider Obstetrics & Gynecology
DX: B37.31 Acute candidiasis of vulva and vagina (principal)
CPT/HCPCS: 99213

== ENCOUNTER 2023-03-20 08:18 | Outpatient (REF) | payer OTHER, SELFPAY ==
[2023-03-22 09:08] LABS: BV Int Neg Control Negative (Negative); BV Int Pos Control Positive (Positive)
== END 2023-03-20 08:19 | disposition home or self-care (01) ==
LOC: HO.LNP 08:18
PROVIDERS: PCP Physician Assistant; Visit Provider Obstetrics & Gynecology
DX: B37.31 Acute candidiasis of vulva and vagina (principal)
CPT/HCPCS: 87480; 87510; 87660; 99212

== ENCOUNTER 2023-07-03 08:54 | Outpatient (REF) | payer OTHER, SELFPAY ==
--- NOTE | ~2023-07-03 | MM_ITS ---
EXAMINATION: MM SCREENING DIGITAL BREAST TOMOSYNTHESIS, BILATERAL WITH BREAST IMPLANTS CLINICAL INFORMATION: Screening. Asymptomatic. COMPARISON: Mammography: This study is compared with prior exams dating back to 2019. TECHNIQUE: Digital breast tomosynthesis is performed in both the craniocaudal and mediolateral oblique views along with computer-aided detection (CAD). Synthesized 2D images are generated from the tomosynthesis. FINDINGS: There are scattered areas of fibroglandular density (ACR BI-RADS breast composition Category b). There are mammographically intact, bilateral, retropectoral silicone breast implants. There are no significant masses, abnormal calcifications, or other abnormalities. MM/MM tomosynthesis screening BI IMPRESSION: No mammographic evidence of malignancy. Mammographically intact breast implants. ASSESSMENT: BI-RADS BI-RADS 1 - Negative RECOMMENDATION: Routine annual mammography screening. 1 year F/U This examination should not preclude the clinical evaluation of a suspicious palpable abnormality. This patient's information was entered into a reminder system with a target due date for their next mammogram.
== END 2023-07-03 08:55 | disposition home or self-care (01) ==
LOC: HO.MAMMO 08:54
PROVIDERS: PCP Physician Assistant; Visit Provider Physician Assistant
DX: Z12.31 Encounter for screening mammogram for malignant neoplasm of breast (principal)
CPT/HCPCS: 77063; 77067

== ENCOUNTER → 2023-07-03 09:00 | Outpatient (BNV) | payer OTHER, SELFPAY | PROVIDERS: PCP Physician Assistant; Visit Provider Radiology Diagnostic Radiology | DX: Z12.31 Encounter for screening mammogram for malignant neoplasm of breast (principal) | CPT/HCPCS: 77063; 77067 ==

== ENCOUNTER 2023-07-18 10:48 | Outpatient (AMB) | payer OTHER, SELFPAY ==
[2023-07-18 10:49] VITALS: BP 110/70; PULSE 92; O2SAT 100; BMI 23.0
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
== END 2023-07-18 11:36 | disposition home or self-care (01) ==
PROVIDERS: PCP Physician Assistant; Visit Provider Nurse Practitioner Family
DX: H10.9 Unspecified conjunctivitis (principal); B96.89 Other specified bacterial agents as the cause of diseases classified elsewhere
CPT/HCPCS: 99213

== ENCOUNTER 2023-07-30 13:03 | Outpatient (REF) | payer OTHER, SELFPAY ==
--- NOTE | ~2023-07-30 | US_ITS ---
EXAMINATION: US PELVIS CLINICAL INFORMATION: Unknown last menstrual period. Noninflammatory disorders of ovary, fallopian tube. COMPARISON: Pelvic ultrasound of 02/13/2023. TECHNIQUE: Ultrasound of the pelvis is performed using both transabdominal and transvaginal transducers along with Doppler. Transvaginal imaging is performed due to inadequate visualization transabdominally. FINDINGS: The uterus is heterogeneous and measures 8.6 x 5.4 x 7.6 cm with volume 224.22 mL. Endometrial thickness is 0.5 cm. A 5.6 x 5.8 x 6.5 cm fibroid previously measured 7.0 x 5.8 x 6.2 cm. There is no significant free fluid. The bilateral ovaries were difficult to visualize, possibly due to bowel gas. The structure felt to represent the right ovary measures 1.5 x 1.5 x 0.9 cm, volume 1.1 mL. The structure felt to possibly represent the left ovary was seen only on transabdominal ultrasound images and measures 2.0 x 1.5 x 1.1 cm, volume 1.7 mL. US/US pelvic and transvaginal IMPRESSION: 1. Fibroid uterus. 2. Endometrial thickness is 0.5 cm. 3. The bilateral ovaries were difficult to visualize as detailed above.
== END 2023-07-30 13:04 | disposition home or self-care (01) ==
LOC: HO.US 13:03
PROVIDERS: PCP Physician Assistant; Visit Provider Obstetrics & Gynecology
DX: D25.9 Leiomyoma of uterus, unspecified (principal)
CPT/HCPCS: 76830; 76856

== ENCOUNTER 2023-08-21 08:07 | Outpatient (AMB) | payer OTHER, SELFPAY ==
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
[2023-08-21 08:13] VITALS: BP 110/68; BMI 23.0
== END 2023-08-21 08:21 | disposition home or self-care (01) ==
LOC: HO.HWS 08:07
PROVIDERS: PCP Physician Assistant; Visit Provider Obstetrics & Gynecology
DX: D25.9 Leiomyoma of uterus, unspecified (principal)
CPT/HCPCS: 99213

== ENCOUNTER → 2023-08-21 08:07 | Outpatient (BNVA) | payer OTHER, SELFPAY | PROVIDERS: PCP Physician Assistant; Visit Provider Obstetrics & Gynecology | DX: D25.9 Leiomyoma of uterus, unspecified (principal) | CPT/HCPCS: 99212 ==

== ENCOUNTER 2023-10-17 12:34 | Outpatient (REF) | payer OTHER, SELFPAY ==
--- NOTE | ~2023-10-17 | US_ITS ---
EXAMINATION: US PELVIS COMPLETE CLINICAL INFORMATION: Abdominal distention; the last menstrual period is uncertain. COMPARISON: Pelvic ultrasound dated 07/30/2023. TECHNIQUE: Transabdominal and transvaginal imaging were performed. FINDINGS: The uterus is of normal size and echogenicity, measuring 9.2 x 6.4 x 8.4 cm. The uterus is anteverted and anteflexed. A regular homogeneous endometrium is identified measuring 0.5 cm. Imaging of the endometrial stripe is limited due to fibroid disease. A small amount of endocervical free fluid is seen. FIBROIDS: There is 1 fibroid seen. 1. Location: Rightward fundus, myometrial. Size: 9.2 x 6.4 x 8.4 cm. Prior: 5.6 x 5.8 x 6.5 cm. Fibroid characteristics: Heterogeneous echotexture. The right ovary is not identified. The left ovary is normal in size and echotexture and shows normal Doppler flow. The left ovary measures 2.1 x 0.7 x 1.4 cm, for a volume of 1.1 mL. There is no pelvic free fluid. No adnexal mass is seen. US/US pelvic and transvaginal IMPRESSION: 1. A large right fundal fibroid is redemonstrated. 2. There is a small amount of endocervical free fluid.
== END 2023-10-17 12:35 | disposition home or self-care (01) ==
LOC: HO.US 12:34
PROVIDERS: PCP Physician Assistant; Visit Provider Obstetrics & Gynecology
DX: R14.0 Abdominal distension (gaseous) (principal); D21.9 Benign neoplasm of connective and other soft tissue, unspecified
CPT/HCPCS: 76830; 76856

== ENCOUNTER 2023-10-22 08:26 | Outpatient (AMB) | payer OTHER, SELFPAY ==
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
[2023-10-22 08:30] VITALS: BP 118/72; BMI 23.0
== END 2023-10-22 08:55 | disposition home or self-care (01) ==
LOC: HO.HWS 08:26
PROVIDERS: PCP Physician Assistant; Visit Provider Obstetrics & Gynecology
DX: D25.9 Leiomyoma of uterus, unspecified (principal)
CPT/HCPCS: 99213

== ENCOUNTER → 2023-10-22 08:26 | Outpatient (BNVA) | payer OTHER, SELFPAY | PROVIDERS: PCP Physician Assistant; Visit Provider Obstetrics & Gynecology | DX: D25.9 Leiomyoma of uterus, unspecified (principal) | CPT/HCPCS: 99212 ==

== ENCOUNTER 2024-02-07 07:53 | Outpatient (AMB) | payer OTHER, SELFPAY ==
[2024-02-07 07:59] VITALS: BP 92/70; BMI 22.5
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
== END 2024-02-07 08:57 | disposition home or self-care (01) ==
PROVIDERS: PCP Physician Assistant; Visit Provider Physician Assistant
DX: Z00.00 Encounter for general adult medical examination without abnormal findings (principal); F41.1 Generalized anxiety disorder; Z13.1 Encounter for screening for diabetes mellitus; F33.0 Major depressive disorder, recurrent, mild; J45.20 Mild intermittent asthma, uncomplicated
CPT/HCPCS: 99396

== ENCOUNTER 2024-02-08 12:06 | Outpatient (AMB) | payer OTHER, SELFPAY ==
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
== END 2024-02-08 12:07 | disposition home or self-care (01) ==
LOC: HO.HWS 12:06
PROVIDERS: PCP Physician Assistant; Visit Provider Obstetrics & Gynecology
DX: N94.9 Unspecified condition associated with female genital organs and menstrual cycle (principal)
CPT/HCPCS: 99211

== ENCOUNTER → 2024-02-08 12:06 | Outpatient (BNVA) | payer OTHER, SELFPAY | PROVIDERS: PCP Physician Assistant; Visit Provider Obstetrics & Gynecology | DX: N94.9 Unspecified condition associated with female genital organs and menstrual cycle (principal) ==

== ENCOUNTER 2024-03-28 07:47 | Outpatient (REF) | payer OTHER, SELFPAY ==
[2024-03-28 08:40] LABS: Hematocrit 35.5 % (37.0-47.0); Hemoglobin 12.2 g/dl (12.0-16.0); Mean Corpuscular HGB Conc 34.4 g/dl (31.0-35.0); Mean Corpuscular Hemoglobin 30.1 pg (27.0-33.0); Mean Corpuscular Volume 87.7 fL (80.0-98.0); Mean Platelet Volume 9.4 fL (9.4-12.3); Platelet Count 323 X10*3/uL (160-400); Red Blood Count 4.05 X10*6/uL (4.20-5.50); Red Cell Distribution Width 12.9 % (11.0-16.0); White Blood Count 5.3 X10*3/uL (4.8-10.8)
[2024-03-28 09:26] LABS: Alanine Aminotransferase 38 U/L (0-31); Albumin Level 4.4 g/dL (3.5-5.0); Alkaline Phosphatase 52 U/L (39-117); Anion Gap 12 (12-20); Aspartate Amino Transferase 27 U/L (5-31); Bilirubin Total 0.4 mg/dL (0.0-1.0); Blood Urea Nitrogen 10 mg/dL (9-16); Calcium 9.5 mg/dL (8.4-10.2); Carbon Dioxide 25 mmol/L (22-29); Chloride 108 mmol/L (96-108); Estimated Glomerular Filt Rate > 60; Glucose Fasting 85 mg/dL (60-99); Potassium 4.1 mmol/L (3.3-5.1); Sodium 141 mmol/L (135-145); Total Protein 7.1 g/dL (6.5-8.0)
== END 2024-03-28 07:48 | disposition home or self-care (01) ==
LOC: HO.LAB 07:47
PROVIDERS: PCP Physician Assistant; Visit Provider Physician Assistant
DX: Z13.1 Encounter for screening for diabetes mellitus (principal)
CPT/HCPCS: 36415; 80053; 85027

== ENCOUNTER 2024-04-09 13:45 | Outpatient (REF) | payer OTHER, SELFPAY ==
[2024-04-09 16:25] LABS: Bacterial Vaginosis PCR NEGATIVE (Negative); Candida Group PCR NOT DETECTED (Not Detect); Candida glab krusei PCR NOT DETECTED (Not Detect); Trichomonas vaginalis PCR NOT DETECTED (Not Detect)
== END 2024-04-09 13:46 | disposition home or self-care (01) ==
LOC: HO.LAB 13:45
PROVIDERS: PCP Physician Assistant; Visit Provider Advanced Practice Midwife
DX: N89.8 Other specified noninflammatory disorders of vagina (principal); N94.9 Unspecified condition associated with female genital organs and menstrual cycle
CPT/HCPCS: 0352U; 99212

== ENCOUNTER 2024-04-09 13:45 | Outpatient (AMB) | payer OTHER, SELFPAY ==
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
== END 2024-04-09 13:55 | disposition home or self-care (01) ==
LOC: HO.HWS 13:45
PROVIDERS: PCP Physician Assistant; Visit Provider Advanced Practice Midwife
DX: N89.8 Other specified noninflammatory disorders of vagina (principal)
CPT/HCPCS: 99213

== ENCOUNTER 2024-04-17 12:22 | Outpatient (REF) | payer OTHER, SELFPAY ==
[2024-04-17 13:22] LABS: Appearance Urine Clear; Color Urine Yellow; Glucose Urine UA Negative (Negative); Leukocyte Esterase Urine Negative (Negative); Nitrite Urine Negative (Negative); PH 6.5 (5.0-9.0); Specific Gravity - Urine <= 1.005 (1.005-1.025); UMIC TRIGGER UACC YES; Urine Blood Trace (Negative); Urine Ketones Trace mg/dL (Negative); Urine Protein Negative (Neg-Trace)
[2024-04-17 13:24] LABS: Bacteria Urine None Seen (None Seen); Hyaline Casts Urine 0-2 /LPF (0-2); RBC Urine 0-2 /HPF (0-2); Squamous Epithelial Cell Urine 0-2 /HPF (0-2); WBC Urine 0-5 /HPF (0-5)
== END 2024-04-17 12:23 | disposition home or self-care (01) ==
LOC: HO.LAB 12:22
PROVIDERS: PCP Physician Assistant; Visit Provider Physician Assistant
DX: R39.9 Unspecified symptoms and signs involving the genitourinary system (principal)
CPT/HCPCS: 81001

== ENCOUNTER 2024-05-12 08:47 | Outpatient (REF) | payer OTHER, SELFPAY ==
[2024-05-12 09:39] LABS: Appearance Urine Clear; Color Urine Yellow; Glucose Urine UA Negative (Negative); Leukocyte Esterase Urine Negative (Negative); Nitrite Urine Negative (Negative); PH 5.5 (5.0-9.0); Specific Gravity - Urine 1.015 (1.005-1.025); UMIC TRIGGER UACC YES; Urine Blood Trace (Negative); Urine Ketones 15 mg/dL (Negative); Urine Protein Negative (Neg-Trace)
[2024-05-12 09:42] LABS: Bacteria Urine None Seen (None Seen); Hyaline Casts Urine 0-2 /LPF (0-2); Squamous Epithelial Cell Urine 0-2 /HPF (0-2); WBC Urine 0-5 /HPF (0-5)
[2024-05-12 09:56] LABS: Calcium 9.5 mg/dL (8.4-10.2)
[2024-05-12 10:11] LABS: Parathyroid Hormone Intact 68.8 pg/mL (8.7-77.1)
== END 2024-05-12 08:48 | disposition home or self-care (01) ==
LOC: HO.LAB 08:47
PROVIDERS: PCP Physician Assistant; Visit Provider Physician Assistant
DX: M89.8X9 Other specified disorders of bone, unspecified site (principal)
CPT/HCPCS: 36415; 81001; 82310; 83970

== ENCOUNTER 2024-05-13 08:56 | Outpatient (AMB) | payer OTHER, SELFPAY ==
[2024-05-13 09:08] VITALS: BP 90/60; PULSE 78; O2SAT 100; BMI 21.4
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
== END 2024-05-13 09:35 | disposition home or self-care (01) ==
PROVIDERS: PCP Physician Assistant; Visit Provider Physician Assistant
DX: R07.89 Other chest pain (principal); F33.0 Major depressive disorder, recurrent, mild

== ENCOUNTER → 2024-05-13 08:56 | Outpatient (REF) | payer OTHER, SELFPAY ==
--- NOTE | 2024-05-14 08:16 | ECG_ITS ---
Test Reason : cp Blood Pressure : / mmHG Vent. Rate : 064 BPM Atrial Rate : 064 BPM P-R Int : 134 ms QRS Dur : 074 ms QT Int : 422 ms P-R-T Axes : 068 052 059 degrees QTc Int : 435 ms Normal sinus rhythm Normal ECG No previous ECGs available Referred By: Shashank Bojorquez Electronically Signed By:DUONG GODOY
== END ==
LOC: HO.CARD 08:56
PROVIDERS: PCP Physician Assistant; Visit Provider Physician Assistant
DX: R07.89 Other chest pain (principal); F33.0 Major depressive disorder, recurrent, mild
CPT/HCPCS: 93005; 99212

== ENCOUNTER 2024-05-26 08:19 | Outpatient (REF) | payer OTHER, SELFPAY ==
[2024-05-26 18:04] LABS: Bacterial Vaginosis PCR NEGATIVE (Negative); Candida Group PCR DETECTED (Not Detect); Candida glab krusei PCR NOT DETECTED (Not Detect); Trichomonas vaginalis PCR NOT DETECTED (Not Detect)
== END 2024-05-26 08:20 | disposition home or self-care (01) ==
LOC: HO.LNP 08:19
PROVIDERS: PCP Physician Assistant; Visit Provider Obstetrics & Gynecology
DX: N94.9 Unspecified condition associated with female genital organs and menstrual cycle (principal); N89.8 Other specified noninflammatory disorders of vagina
CPT/HCPCS: 0352U; 99212

== ENCOUNTER 2024-05-26 08:19 | Outpatient (AMB) | payer OTHER, SELFPAY ==
[2024-05-26 08:20] VITALS: BMI 21.4
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
== END 2024-05-26 08:39 | disposition home or self-care (01) ==
LOC: HO.HWS 08:19
PROVIDERS: PCP Physician Assistant; Visit Provider Obstetrics & Gynecology
DX: N89.8 Other specified noninflammatory disorders of vagina (principal)
CPT/HCPCS: 99213

== ENCOUNTER 2024-05-26 09:15 | Outpatient (REF) | payer OTHER, SELFPAY ==
[2024-05-27 08:49] LABS: Follicle Stimulating Hormone 4.7 mIU/mL
== END 2024-05-26 09:16 | disposition home or self-care (01) ==
LOC: HO.LAB 09:15
PROVIDERS: PCP Physician Assistant; Visit Provider Obstetrics & Gynecology
DX: N89.8 Other specified noninflammatory disorders of vagina (principal)
CPT/HCPCS: 36415; 83001; 83002

== ENCOUNTER 2024-06-12 14:44 | Outpatient (AMB) | payer OTHER, SELFPAY ==
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
== END 2024-06-12 15:50 | disposition home or self-care (01) ==
LOC: HO.HMCH 14:45
PROVIDERS: PCP Physician Assistant; Visit Provider Physician Assistant
DX: F33.0 Major depressive disorder, recurrent, mild (principal)

== ENCOUNTER → 2024-06-12 14:44 | Outpatient (BNVA) | payer OTHER, SELFPAY | PROVIDERS: PCP Physician Assistant; Visit Provider Physician Assistant ==

== ENCOUNTER 2024-07-08 09:39 | Outpatient (REF) | payer OTHER, SELFPAY ==
--- NOTE | ~2024-07-08 | MM_ITS ---
EXAMINATION: MM SCREENING DIGITAL BREAST TOMOSYNTHESIS, BILATERAL CLINICAL INFORMATION: Screening. Asymptomatic. COMPARISON: Mammography: Comparison is made with relevant avialable priors. TECHNIQUE: Digital mammography is performed in craniocaudal and mediolateral oblique views along with computer-aided detection (CAD). Digital breast tomosynthesis is performed in implant-displaced craniocaudal and implant-displaced mediolateral oblique views along with computer-aided detection (CAD). FINDINGS: There are scattered areas of fibroglandular density (ACR BI-RADS breast composition Category b). Bilateral retropectoral implants are stable appearing. There are no significant masses, abnormal calcifications, or other abnormalities. MM/MM tomosynthesis screen imp BI IMPRESSION: There are no significant changes from prior study. ASSESSMENT: BI-RADS BI-RADS 1 - Negative RECOMMENDATION: Routine annual mammography screening. 1 year F/U This patient's information was entered into a reminder system with a target due date for their next mammogram. Electronically signed by: Isabelle Mcgill DO 07/08/2024 03:58 PM [facility]
--- NOTE | ~2024-07-08 | XR_ITS ---
EXAMINATION: XR KNEE, LEFT CLINICAL INFORMATION: M25.562 - Pain in left knee COMPARISON: None available. TECHNIQUE: Four views of the left knee. FINDINGS: No fracture, dislocation or destructive process or joint effusion. XR/XR knee LT 3V IMPRESSION: Negative study. Electronically signed by: Ian Marsh MD 07/08/2024 04:01 PM [facility]
== END 2024-07-08 09:40 | disposition home or self-care (01) ==
LOC: HO.MAMMO 09:39
PROVIDERS: PCP Physician Assistant; Visit Provider Physician Assistant
DX: M25.562 Pain in left knee (principal); Z12.31 Encounter for screening mammogram for malignant neoplasm of breast
CPT/HCPCS: 73562; 77063; 77067

== ENCOUNTER → 2024-07-08 09:45 | Outpatient (BNV) | payer OTHER, SELFPAY | PROVIDERS: PCP Physician Assistant; Visit Provider Internal Medicine | DX: Z12.31 Encounter for screening mammogram for malignant neoplasm of breast (principal) | CPT/HCPCS: 77063; 77067 ==

== ENCOUNTER 2024-11-24 11:00 | Outpatient (RCR) | payer OTHER, SELFPAY ==
--- NOTE | 2024-09-08 12:45 | MHC.PT.EP ---
[facility] [place] Office [place] Office [place] Office [address] [phone] F: [phone] F: [phone] F: [phone] F: [phone] Physical Therapy Plan of Care Date of Evaluation: 09/08/24 Date of Surgery: Diagnosis: LEFT KNEE PAIN Assessment: 43 YO FEMALE REF TO PT FOR Lt KNEE PAIN, INFLUENCING HER RUNNING/ FITNESS TOLERANCE. SHE HAS (+) LATERAL PATELLAR TIGHTNESS IN Lt > Rt KNEE , (-) INSTABILITY FINDINGS IN Lt KNEE, MILD (+) TRISTAN DIPESH, (+) LUMBOPELVIC ASYMM. SHE HAS (+) LEFT PF CREPITUS W DESC STAIRS, DEEPER SQUATS. 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 THE Pt REQUESTS PT 1 x WK. Frequency and Duration: The patient will be seen 1 x WK x 4 WKS Short Term Goals: IMPROVE ITB/ LATERAL TRUNK FLEXIB TO REDUCE PATELLAR BIAS Pt INDEP SELF MOBS FOR LATERAL ASPECT INITIATE HEP KT TRIAL Custodial Goals: Pt INDEP HEP AND SELF SX MGMT TECHN Pt RETURN TO RUNNING/ REG ADLs EVIDENT W IMPROVED LEFI (AT EVAL 55/80) Treatment Plan: Modalities to reduce pain, spasms and effusion. Manual therapy to restore motion and function. Therapeutic exercise to improve strength and flexibility. Neuromuscular re-education for posture and balance. Therapeutic activities to return to functional activities of daily living. Electronically signed by: COREY LONGORIA,PT Please sign and return to therapist. Thank you for your referral.
--- NOTE | 2025-03-13 14:43 | MHC.PT.DC ---
[facility] [place] Office [place] Office [place] Office [address] Wagner Mcdowell [address] [phone] F: [phone] F: [phone] F: [phone] F: [phone] Physical Therapy Discharge Report Diagnosis: LEFT KNEE PAIN Date of Surgery: Date of Evaluation: 09/08/24 Date of Discharge: 03/13/25 Treatments to Date: 6 Cancellations to Date: 5 No Shows to Date: Discharge Status: Achieved Goals Improved Function Patient Elected to Stop Discharge Summary: MELINDA SIMON IMPROVED SELF-CORRECTION AND AWARENESS OF LUMBOPELVIC SYMM-> SHE BENEFITTED FROM THE ABOVE STABILIZATION EXER TO INCR [facility], HIP ER, AND QUAD WORK-> SHE PERF THE ABOVE W/O PF SXS-SHE REMAINS MOTIVATED AND REQUESTED A RECHECK IN 2 WEEKS-> THE Pt DID NOT ATTEND HER PT RECHECK, SHE IS DISCHARGED THIS DATE, AT LAST ATTENDED APPT SHE WAS FEELING GOOD AND HAD APPROP COMPREHENSION OF HER HEP, WE WERE UNABLE TO PERFORM A FORMAL REASSESSMENT. DUE TO NO SHOW AT LAST ATTENDED APPT. Electronically signed by: COREY LONGORIA, PT Please sign and return to therapist. Thank you for your referral.
== END 2025-03-13 14:44 | disposition home or self-care (01) ==
LOC: HO.PT 11:00
PROVIDERS: PCP Physician Assistant; Visit Provider Physician Assistant
DX: M25.562 Pain in left knee (principal)
CPT/HCPCS: 97110; 97140; 97161; 97530

== ENCOUNTER 2025-02-09 15:59 | Outpatient (AMB) | payer OTHER, SELFPAY ==
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
[2025-02-09 16:08] VITALS: BP 96/74; PULSE 72; TEMP 36.2; O2SAT 100; BMI 23.1
== END 2025-02-09 17:10 | disposition home or self-care (01) ==
LOC: HO.HMCH 16:00
PROVIDERS: PCP Physician Assistant; Visit Provider Physician Assistant
DX: Z00.00 Encounter for general adult medical examination without abnormal findings (principal); M23.307 Other meniscus derangements, unspecified meniscus, left knee; F33.0 Major depressive disorder, recurrent, mild; K21.9 Gastro-esophageal reflux disease without esophagitis; J45.20 Mild intermittent asthma, uncomplicated

== ENCOUNTER → 2025-02-09 15:59 | Outpatient (BNVA) | payer OTHER, SELFPAY | PROVIDERS: PCP Physician Assistant; Visit Provider Physician Assistant | DX: Z00.00 Encounter for general adult medical examination without abnormal findings (principal); M23.307 Other meniscus derangements, unspecified meniscus, left knee; F33.0 Major depressive disorder, recurrent, mild; K21.9 Gastro-esophageal reflux disease without esophagitis; J45.20 Mild intermittent asthma, uncomplicated | CPT/HCPCS: 96127; 96160; 99396 ==

== ENCOUNTER 2025-02-10 10:38 | Outpatient (REF) | payer OTHER, SELFPAY ==
--- NOTE | ~2025-02-10 | MR_ITS ---
CLINICAL HISTORY: M23.307 - Other meniscus derangements, unspecified meniscus, left knee --- Additional Notes or Special Instructions: Left knee instability and chronic pain, has done physical therapy though MR left knee without gadolinium Comparison: None provided Findings: No acute fracture or pathologic bone lesion. No joint effusion. Small Almonte's cyst. Cruciate and collateral ligaments are intact. Patellar retinacula and iliotibial band are intact. Quadriceps, patellar, popliteus, and flexor tendons are intact. Linear horizontal high T2 signal intensity traverses the inner, middle, and peripheral thirds of the posterior horn medial meniscus, as well as the inner and middle thirds of the medial meniscal body, demonstrating inferior articular surface extension, indicating horizontal tearing. IMPRESSION: Medial meniscal tearing. This document has been electronically signed by: Mariah Miller MD on 02/10/2025 16:27:47
== END 2025-02-10 10:39 | disposition home or self-care (01) ==
LOC: HO.MRI 10:38
PROVIDERS: Visit Provider Physician Assistant
DX: M23.307 Other meniscus derangements, unspecified meniscus, left knee (principal)
CPT/HCPCS: 73721

== ENCOUNTER → 2025-02-10 10:45 | Outpatient (BNV) | payer OTHER, SELFPAY | PROVIDERS: Visit Provider Radiology Diagnostic Radiology | DX: S83.242A Other tear of medial meniscus, current injury, left knee, initial encounter (principal) | CPT/HCPCS: 73721 ==

== ENCOUNTER 2025-02-24 12:56 | Outpatient (AMB) | payer OTHER, SELFPAY ==
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
[2025-02-24 13:09] VITALS: BMI 23.0
== END 2025-02-24 14:21 | disposition home or self-care (01) ==
LOC: HO.HOS 13:02
PROVIDERS: PCP Physician Assistant; Visit Provider Physician Assistant
DX: M70.52 Other bursitis of knee, left knee (principal); S83.207A Unspecified tear of unspecified meniscus, current injury, left knee, initial encounter
CPT/HCPCS: 99203; G2211

== ENCOUNTER → 2025-02-24 12:56 | Outpatient (BNVA) | payer OTHER, SELFPAY | PROVIDERS: PCP Physician Assistant; Visit Provider Physician Assistant | DX: M70.52 Other bursitis of knee, left knee (principal); S83.207A Unspecified tear of unspecified meniscus, current injury, left knee, initial encounter; X58.XXXA Exposure to other specified factors, initial encounter | CPT/HCPCS: 99202 ==

== ENCOUNTER 2025-02-25 14:52 | Outpatient (AMB) | payer OTHER, SELFPAY ==
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
== END 2025-02-25 15:11 | disposition home or self-care (01) ==
PROVIDERS: PCP Physician Assistant; Visit Provider Obstetrics & Gynecology
DX: N76.0 Acute vaginitis (principal)
CPT/HCPCS: 99213

== ENCOUNTER 2025-02-25 15:04 | Outpatient (REF) | payer OTHER, SELFPAY ==
[2025-02-25 20:38] LABS: Bacterial Vaginosis PCR NEGATIVE (Negative); Candida Group PCR DETECTED (Not Detect); Candida glab krusei PCR NOT DETECTED (Not Detect); Trichomonas vaginalis PCR NOT DETECTED (Not Detect)
[2025-02-25 21:02] LABS: CT PCR NOT DETECTED (Not Detect.); NG PCR NOT DETECTED (Not Detect.)
== END 2025-02-25 15:05 | disposition home or self-care (01) ==
LOC: HO.LNP 15:04
PROVIDERS: Visit Provider Obstetrics & Gynecology
DX: N76.0 Acute vaginitis (principal)
CPT/HCPCS: 81515; 87491; 87591; 99212

== ENCOUNTER 2025-03-11 08:22 | Outpatient (AMB) | payer OTHER, SELFPAY ==
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
[2025-03-11 08:25] VITALS: BP 122/70; BMI 22.9
== END 2025-03-11 08:39 | disposition home or self-care (01) ==
LOC: HO.HWS 08:22
PROVIDERS: PCP Physician Assistant; Visit Provider Obstetrics & Gynecology
DX: Z01.419 Encounter for gynecological examination (general) (routine) without abnormal findings (principal)
CPT/HCPCS: 99396; 99459

== ENCOUNTER 2025-03-11 08:22 | Outpatient (REF) | payer OTHER, SELFPAY ==
[2025-03-11 20:16] LABS: Bacterial Vaginosis PCR NEGATIVE (Negative); Candida Group PCR NOT DETECTED (Not Detect); Candida glab krusei PCR NOT DETECTED (Not Detect); Trichomonas vaginalis PCR NOT DETECTED (Not Detect)
== END 2025-03-11 08:23 | disposition home or self-care (01) ==
LOC: HO.LNP 08:22
PROVIDERS: PCP Physician Assistant; Visit Provider Obstetrics & Gynecology
DX: Z01.419 Encounter for gynecological examination (general) (routine) without abnormal findings (principal); Z11.51 Encounter for screening for human papillomavirus (HPV); B37.31 Acute candidiasis of vulva and vagina
CPT/HCPCS: 81515; 87626; 88175; 99396

== ENCOUNTER 2025-06-05 14:47 | Outpatient (AMB) | payer OTHER, SELFPAY ==
[2025-06-05 15:11] VITALS: BP 90/68; PULSE 104; RESP 18; TEMP 36.3; O2SAT 98; BMI 23.6
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
== END 2025-06-05 15:52 | disposition home or self-care (01) ==
LOC: HO.HMCH 14:47
PROVIDERS: PCP Physician Assistant; Visit Provider Nurse Practitioner Family
DX: K14.6 Glossodynia (principal)

== ENCOUNTER → 2025-06-05 14:47 | Outpatient (BNVA) | payer OTHER, SELFPAY | PROVIDERS: PCP Physician Assistant; Visit Provider Nurse Practitioner Family | DX: K14.6 Glossodynia (principal) | CPT/HCPCS: 99212 ==

== ENCOUNTER 2025-06-09 09:54 | Outpatient (AMB) | payer OTHER, SELFPAY ==
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
[2025-06-09 10:04] VITALS: BP 98/61; PULSE 72; O2SAT 98; BMI 22.9
== END 2025-06-09 11:39 | disposition home or self-care (01) ==
LOC: HO.HGI 09:55
PROVIDERS: PCP Physician Assistant; Visit Provider Nurse Practitioner Family
DX: Z01.818 Encounter for other preprocedural examination (principal); Z12.11 Encounter for screening for malignant neoplasm of colon; K59.00 Constipation, unspecified; K21.9 Gastro-esophageal reflux disease without esophagitis
CPT/HCPCS: 99202

== ENCOUNTER → 2025-06-09 09:54 | Outpatient (BNVA) | payer OTHER, SELFPAY | PROVIDERS: PCP Physician Assistant; Visit Provider Nurse Practitioner Family | DX: Z01.818 Encounter for other preprocedural examination (principal); K21.9 Gastro-esophageal reflux disease without esophagitis; K59.00 Constipation, unspecified | CPT/HCPCS: 99202 ==

== ENCOUNTER 2025-06-11 08:46 | Outpatient (REF) | payer OTHER, SELFPAY ==
[2025-06-11 09:11] LABS: Appearance Urine Clear; Glucose Urine UA Negative (Negative); PH 7.5 (5.0-9.0); Specific Gravity - Urine 1.015 (1.005-1.025); UMIC TRIGGER UACC YES
[2025-06-11 09:14] LABS: UACC Culture Trigger YES
== END 2025-06-11 08:47 | disposition home or self-care (01) ==
LOC: HO.LAB 08:46
PROVIDERS: PCP Physician Assistant; Visit Provider Physician Assistant
DX: R39.9 Unspecified symptoms and signs involving the genitourinary system (principal)
CPT/HCPCS: 81001; 87086; 87088; 87186

== ENCOUNTER 2025-06-22 08:14 | Outpatient (REF) | payer OTHER, SELFPAY ==
[2025-06-22 09:04] LABS: Hematocrit 37.0 % (37.0-47.0); Hemoglobin 12.2 g/dl (12.0-16.0); Mean Corpuscular HGB Conc 33.0 g/dl (31.0-35.0); Mean Corpuscular Hemoglobin 29.0 pg (27.0-33.0); Mean Corpuscular Volume 87.9 fL (80.0-98.0); NRBC Abs Auto 0.000 X10*3/uL (0.0-0.012); NRBC Pct Auto 0.0 /100WBC (0.0-0.2); Platelet Count 366 X10*3/uL (160-400); Red Blood Count 4.21 X10*6/uL (4.20-5.50); White Blood Count 5.3 X10*3/uL (4.8-10.8)
[2025-06-22 09:23] LABS: Appearance Urine Clear; Glucose Urine UA Negative (Negative); PH 7.0 (5.0-9.0); Specific Gravity - Urine 1.015 (1.005-1.025); UMIC TRIGGER UACC YES
[2025-06-22 09:46] LABS: Alanine Aminotransferase 17 U/L (0-31); Albumin Level 4.2 g/dL (3.5-5.0); Alkaline Phosphatase 62 U/L (39-117); Anion Gap 8 (12-20); Aspartate Amino Transferase 23 U/L (5-31); Blood Urea Nitrogen 12 mg/dL (9-16); Calcium 8.7 mg/dL (8.4-10.2); Carbon Dioxide 28 mmol/L (22-29); Chloride 108 mmol/L (96-108); Estimated Glomerular Filt Rate > 60; Potassium 3.8 mmol/L (3.3-5.1); Sodium 140 mmol/L (135-145); Total Protein 6.7 g/dL (6.5-8.0)
[2025-06-22 10:15] LABS: Folate 10.6 ng/mL (> or = 4.0); Vitamin B12 468 pg/mL (200-900)
== END 2025-06-22 08:15 | disposition home or self-care (01) ==
LOC: HO.LAB 08:14
PROVIDERS: Visit Provider Physician Assistant
DX: Z13.1 Encounter for screening for diabetes mellitus (principal); E53.8 Deficiency of other specified B group vitamins; R53.83 Other fatigue; K21.9 Gastro-esophageal reflux disease without esophagitis
CPT/HCPCS: 36415; 80053; 81001; 82306; 82607; 82746; 85027

== ENCOUNTER 2025-07-14 09:26 | Outpatient (REF) | payer OTHER, SELFPAY ==
--- NOTE | ~2025-07-14 | MM_ITS ---
EXAMINATION: MM SCREENING DIGITAL BREAST TOMOSYNTHESIS, BILATERAL CLINICAL INFORMATION: Screening. Asymptomatic. COMPARISON: Comparison made to multiple prior, most recent July 08, 2024, and most remote February 13, 2020. TECHNIQUE: Digital breast tomosynthesis is performed in mediolateral oblique and craniocaudal views along with computer-aided detection (CAD). Digital breast tomosynthesis is performed in implant-displaced craniocaudal and implant-displaced mediolateral oblique views along with computer-aided detection (CAD). Synthesized 2D images are generated from the tomosynthesis. FINDINGS: BREAST COMPOSITION: There are scattered areas of fibroglandular density. BILATERAL BREASTS: Bilateral retropectoral silicone implants are mammographically intact. No significant masses, suspicious calcifications or other abnormalities are seen in either breast. MM/MM tomosynthesis screen imp BI IMPRESSION: BILATERAL BREASTS: Benign, no mammographic evidence of malignancy. Normal interval follow-up is recommended in 12 months. ASSESSMENT: BI-RADS: Category 2: Benign RECOMMENDATION: Routine annual mammography screening. FOLLOW-UP: 1 year F/U This examination should not preclude the clinical evaluation of a suspicious palpable abnormality. This patient's information was entered into a reminder system with a target due date for their next mammogram. Electronically signed by: Fatou Johnson MD 07/14/2025 07:14 PM KEYONNA
== END 2025-07-14 09:27 | disposition home or self-care (01) ==
LOC: HO.MAMMO 09:26
PROVIDERS: PCP Physician Assistant; Visit Provider Physician Assistant
DX: Z12.31 Encounter for screening mammogram for malignant neoplasm of breast (principal)
CPT/HCPCS: 77063; 77067

== ENCOUNTER → 2025-07-14 09:30 | Outpatient (BNV) | payer OTHER, SELFPAY | PROVIDERS: PCP Physician Assistant; Visit Provider Radiology Body Imaging | DX: Z12.31 Encounter for screening mammogram for malignant neoplasm of breast (principal) | CPT/HCPCS: 77063; 77067 ==